=== PATIENT | male | born 1995 | race Caucasian/White ===

== ENCOUNTER 2016-10-26 13:56 | Emergency (ER) | payer BC ==
[~2016-10-26] VITALS: Ht 203.2 cm; Wt 147.7 kg
[2016-10-26 13:59] VITALS: BP 147/76; PULSE 70; TEMP 98.8
[2016-10-26] MEDS ORDERED: CRUTCHES MC (15:56)
== END 2016-10-26 16:50 | disposition home or self-care (01) ==
LOC: COL.ER 13:56
DX: S90.851A Superficial foreign body, right foot, initial encounter (principal); W22.8XXA Striking against or struck by other objects, initial encounter; Y92.009 Unspecified place in unspecified non-institutional (private) residence as the place of occurrence of the external cause; F41.9 Anxiety disorder, unspecified; Z23 Encounter for immunization